=== PATIENT | female | born 1970 | race Hispanic/Latino ===

== ENCOUNTER 2023-12-18 11:14 | Emergency (ER) | payer OTHER ==
[~2023-12-18] VITALS: Ht 162.6 cm; Wt 89.0 kg
[2023-12-18 11:50] LABS: BASOPHILS # (AUTO) 0.04 K/uL (0.00-0.20); BASOPHILS % (AUTO) 0.7 % (0.0-5.0); EOSINOPHILS % (AUTO) 3.5 % (0.0-8.0); HEMATOCRIT 38.5 % (36-48); IMMATURE GRANULOCYTE ABSOLUTE 0.02 K/uL (0-1); LYMPHOCYTES # (AUTO) 2.2 K/uL (1.0-4.8); LYMPHOCYTES % (AUTO) 39.1 % (21.0-51.0); MEAN CORPUSCULAR HEMOGLOBIN 33.3 pg (27.0-33.0); MONOCYTES # (AUTO) 0.5 K/uL (0.1-1.0); MONOCYTES % (AUTO) 9.3 % (3.0-13.0); NEUTROPHILS # (AUTO) 2.7 K/uL (1.8-7.7); PLATELET COUNT (AUTO) 264 K/uL (130-400); RED BLOOD CELL COUNT(AUTO) 3.93 MIL/uL (4.00-5.50); RED CELL DISTRIBUTION WIDTH 11.9 % (11.0-15.5); WHITE BLOOD COUNT (AUTO) 5.7 K/uL (4.8-10.8)
[2023-12-18 11:55] LABS: CREATININE 0.8 mg/dL (0.5-1.0); POTASSIUM 4.4 mmol/L (3.5-5.1)
[2023-12-18] MEDS: CYCLOBENZAPRINE HCL 10 MG TABLET PO ONE (13:43)
[2023-12-18] MEDS: ibuPROFEN 600 MG TABLET PO ONE (13:43)
[2023-12-18] MEDS: acetaMINOPHEN 500 MG TABLET PO ONE (13:44)
[2023-12-18] MEDS ORDERED: IBUP-2070 PO (13:45)
[2023-12-18] MEDS ORDERED: CYCL10TA16 PO (13:45)
[2023-12-18] MEDS ORDERED: ACET-66 PO (13:45)
[2023-12-18 13:58] VITALS: BP 124/84; PULSE 82; RESP 18; TEMP 98.6; O2SAT 100
== END 2023-12-18 14:05 | disposition home or self-care (01) ==
LOC: EDH 11:14
DX: M54.50 Low back pain, unspecified (principal); M54.2 Cervicalgia; I10 Essential (primary) hypertension; V89.2XXA Person injured in unspecified motor-vehicle accident, traffic, initial encounter; Y93.89 Activity, other specified; Y92.488 Other paved roadways as the place of occurrence of the external cause; Y99.8 Other external cause status
CPT/HCPCS: 36415; 70450; 71045; 71250; 72125; 72170; 74176; 80048; 85025